=== PATIENT | female | born 1980 | race African-American/Black ===

== ENCOUNTER 2017-01-05 07:17 | Emergency (ER) | payer OTHER | END 2017-01-05 07:45 | disposition home or self-care (01) | LOC: CED 07:17 | DX: M26.609 Unspecified temporomandibular joint disorder, unspecified side (principal) | CPT/HCPCS: 99282 ==

== ENCOUNTER 2017-03-29 10:56 | Emergency (ER) | payer OTHER ==
[~2017-03-29] VITALS: Ht 175.3 cm; Wt 74.8 kg
== END 2017-03-29 12:39 | disposition home or self-care (01) ==
LOC: CED 10:56 → CFTX 10:56
DX: J06.9 Acute upper respiratory infection, unspecified (principal); F17.200 Nicotine dependence, unspecified, uncomplicated
CPT/HCPCS: 87651; 99283